=== PATIENT | female | born 1950 | race Hispanic/Latino ===

== ENCOUNTER 2023-01-26 16:07 | Emergency (ER) | payer MEDICARE, OTHER ==
[~2023-01-26] VITALS: Ht 152.4 cm; Wt 102.1 kg
[2023-01-26] MEDS ORDERED: RIVAROXABAN 15 MG TABLET PO ONE (17:00)
[2023-01-26] MEDS ORDERED: ANAPROX DS550 MG PO (17:13)
[2023-01-26] MEDS ORDERED: ALBUTEROL2.5 MG/0.5 PO (17:13)
[2023-01-26] MEDS ORDERED: BENZONATATE200 MG PO (17:13)
[2023-01-26 17:17] VITALS: BP 148/79
== END 2023-01-26 17:18 | disposition home or self-care (01) ==
LOC: ER 16:13
DX: R05.9 Cough, unspecified (principal); J40 Bronchitis, not specified as acute or chronic; R09.1 Pleurisy; I10 Essential (primary) hypertension; E11.9 Type 2 diabetes mellitus without complications; E78.5 Hyperlipidemia, unspecified
CPT/HCPCS: 71046; 93005; 99283